=== PATIENT | male | born 1955 | race Caucasian/White ===

== ENCOUNTER 2017-02-07 08:59 | Day surgery (SDC) | payer OTHER ==
[~2017-02-07 08:59] MED LIST: ACETAMINOPHEN 500 MG TABLET PO PRN; HYDROmorphone HCL 2 MG/ML VIAL IV PRN; MAG HYDROX/ALUMINUM HYD/SIMETH 30 ML UDC PO PRN; MAGNESIUM HYDROXIDE 30 ML UDC PO PRN; ONDANSETRON HCL/PF 2 MG/ML VIAL IV PRN; PROMETHAZINE HCL 25 MG in DEXTROSE 5 % IN WATER 50 ML IV PRN; ZOLPIDEM TARTRATE 5 MG TABLET PO PRN; diphenhydrAMINE HCL 50 MG/ML VIAL IV PRN; oxyCODONE HCL/ACETAMINOPHEN 1 TAB TABLET PO PRN
[2017-02-07] MEDS ORDERED: RINGER'S SOLUTION,LACTATED 1,000 ML IV PRN (09:02)
[2017-02-07] MEDS ORDERED: ceFAZolin SODIUM 1 GM VIAL IV PRN (09:02)
[2017-02-07] MEDS ORDERED: RINGER'S SOLUTION,LACTATED 1,000 ML IV ONE ×3 (09:30→11:01)
--- NOTE | 2017-02-07 12:41 | OR ---
Operative Report - Dictated Report Narrative: Date: 02/07/2017 Physician: Joseph Tafoya M.D. Property Appraiser: Po Lee PA-C Preoperative diagnosis: Left Shoulder full-thickness supraspinatus rotator cuff tear, cubital tunnel Postoperative diagnosis: Left Shoulder full-thickness supraspinatus rotator cuff tear, biceps tendinopathy, degenerative labral tear, cubital tunnel syndrome with ulnar nerve instability Procedure: Left shoulder arthroscopy with mini open rotator cuff repair, biceps tenodesis, labral debridement, left elbow cubital tunnel release with ulnar nerve submuscular transposition Anesthesia: General plus regional Complications: None Estimated blood loss: Minimal Specimens: Biceps tendon for disposal Tourniquet: 28 minutes at 250 mmHg Retained implants: [employer] 4.5 mm peek helicoil anchor 3, footprint anchor 1 Drains: None Indications: Mr. Harden Is a 61 year-old gentleman who has been followed in my clinic with complaints of shoulder pain consistent rotator cuff pathology as well as ulnar neuropathy. Physical exam and diagnostic imaging were consistent with his complaints and concern for rotator cuff tear and cubital tunnel syndrome. Conservative measures have failed including, but not limited to, passage of time , activity modification, medications, physical therapy/home exercise program, or injections. The risks, benefits, and alternatives were discussed in clinic. The risks being , bleeding, infection, blood clots, nerve, tendon, ligament, blood vessel injury, persistent pain, arthrosis, stiffness, need for prolonged therapy, need for additional procedures, and persistent symptoms. Consent was obtained in the clinic. Procedure: After marking the correct extremity in the preoperative holding area, a timeout was performed in the operating room. IV antibiotics consisting of Ancef were administered prior to the procedure. A general followed by regional anesthetic was induced by the nurse media monitor per my request. This was in the supine position, then the patient was transitioned to a beachchair position with all bony prominences well-padded, head in neutral, the nonoperative arm well supported, and the legs padded with SCDs in place. The operative shoulder was then prepped and draped in a standard sterile fashion. A sterile tourniquet was applied to the operative upper arm. The arm was exsanguinated and the tourniquet was inflated to 250 mmHg. Using loupe magnification, a longitudinal incision centered over the cubital tunnel was made approximately 6 centimeters in length. Blunt dissection was carried down to the subcutaneous tissues using bipolar cautery for hemostasis. Care was taken to protect the identified underlying cutaneous nerves. The ulnar nerve was identified as it passed through the medial intermuscular septum along the distal triceps. A release of the canal in this area as the ulnar nerve passed anterior to posterior was performed in order to decompress the nerve at this site. The nerve was dissected releasing the overlying soft tissues while maintaining the vascularity of the nerve down to the area of the medial epicondyles and Kang's ligament. The nerve was completely decompressed as it passed posterior to the medial condyle and was followed into the flexor carpi ulnaris. The deep fascia of the flexor carpi ulnaris muscle was released in order to decompress the nerve at this site. The first branch of the ulnar nerve was protected as well as any identified recurrent branches. The elbow was placed through range of motion and it was noted that the nerve was not stable and it was noted to be dislocating with range of motion both pre-and post -decompression. For this reason it was felt that a transposition was necessary. The nerve was mobilized medially and anteriorly ensuring that there was no pressure from the intermuscular septum or the flexor carpi ulnaris fascia. A submuscular transposition was then performed under the flexor muscles of the medial aspect of the elbow ensuring that there is no excessive pressure and that the elbow could be placed through range of motion without any compression of the ulnar nerve. The repair of the flexor muscle fascia was performed with 4-0 Ethibond and oversewn with 4-0 Vicryl. Once it was felt that we had completely released the compressive structures on the ulnar nerve, the wound was thoroughly irrigated and the tourniquet was deflated. Hemostasis was obtained using pressure and bipolar cautery. Once adequate hemostasis was in place local anesthetic was placed in the skin edges, and the subcutaneous tissue was closed with interrupted Vicryl. The skin was closed with 4-0 nylon and sterile dressings consisting of Xeroform, 4 x 4, soft roll, and a forearm Dustin wrap was applied. All sponge, needle, blade, and instrument counts were correct prior to closing the wounds. We then turned our attention to the shoulder. Preoperatively the shoulder had full passive range of motion, and no gross instability. After marking out the bony landmarks, saline was infused into the joint through a posterior lateral portal site. A apurva incision was made, and the blunt trocar and cannula was introduced into the shoulder joint. An accessory portal was placed in the rotator cuff interval using a spinal needle for guidance. Upon initial evaluation, the biceps tendon showed near full-thickness tendinopathy and tear as it passed into the joint. The middle glenohumeral ligament was unremarkable. Subscapularis tendon was unremarkable. The glenoid showed minimal degenerative change. The humeral head articular surface showed and we' ll degenerative change. The anterior labrum was frayed but intact. The superior labrum was frayed but intact. The pouch was unremarkable. The posterior labrum was intact. The supraspinatus tendon was torn from just behind the biceps over approximately 50% of the anterior to posterior length of the tendon. The infraspinatus tendon was intact. Utilizing anterior portal of the biceps was tagged with a 2-0 nylon and then transected as it inserted on the labrum. The remaining biceps stump was then debrided. The labrum was debrided down to stable margins as well as well as the torn portion of the rotator cuff at the tuberosity. Attention was then turned to the subacromial space. Subacromial bursectomy was performed utilizing the prior portals. The coracoacromial ligament was frayed but intact. The bursal side of the rotator cuff demonstrated a tear full -thickness was identified intra-articularly. The acromial arch was unremarkable. Based on the arthroscopic findings, as well as exam and radiographic findings, it was elected to proceed with a mini open rotator cuff repair. A longitudinal incision centered over the previously identified rotator cuff tear was made just off the edge of the acromion. This was approximately 5 centimeters in length. The deltoid fascia was split sharply in line with its fibers, and blunt dissection was carried through the deltoid muscle. Any remaining subacromial bursal tissue was debrided in order to expose the underlying rotator cuff tear. The rotator cuff tear appeared to be transverse orientation. The tuberosity was debrided of its soft tissues producing a bleeding bed for the tendon to be secured to. 2 4.5 mm PEEK helicoil anchor was placed just off the articular surface of the humeral head. A series of horizontal mattress sutures were placed at the prepared edge of the rotator cuff. This allowed for a tension-free return of the tendon to the greater tuberosity. The sutures were then passed longitudinally into 1 4.5 mm PEEK footprint anchor. This was performed and a suture bridge technique. This gave good overall compression to the rotator cuff at the insertion site. The shoulders place a range of motion and had no lift off of the repair site as well as no crepitance or signs of impingement. The biceps was then identified in the groove and secured using a 4.5 mm helicoil anchor as well. This was then oversewn with the remaining suture closing the bicipital groove and interval. Full passive range of motion was able to be obtained. Once it was felt that the rotator cuff was adequately repaired, the wounds were thoroughly irrigated. 0 Vicryl was utilized in order to repair the deltoid fascia. 3-0 Vicryl was placed in the subcutaneous tissue. The rotator cuff incision as well as the portal sites were closed with interrupted nylon. Dressings consisting of Xeroform, 4 x 4, ABD, soft roll, and tape were applied. All sponge, needle, blade, and instrument counts were correct prior to closing the wounds. The patient was awoken and transferred to the postanesthesia care unit in stable condition.
--- NOTE | 2017-02-07 12:50 | OR ---
Anesthesia Procedure Note - Anesthesia Procedure Note Narrative: Vital Signs - Last Taken Temp 36.2 C L 02/07/17 12:35 Pulse 61 02/07/17 12:40 Resp 16 02/07/17 12:40 BP 95/66 02/07/17 12:40 Pulse Ox 94 02/07/17 12:40 O2 Oxygen Delivery Method Room Air 02/07/17 12:46 ANESTHESIA PROCEDURE NOTE Date of procedure: 02/07/2017. Time of procedure: 1005. Performed by: Samuel Hurt CRNA Laundry Laborer: Jenny Jensen RN . Preprocedure diagnosis: left rotator cuff tear.. Post procedure diagnosis: Same. Procedure: Left interscalene nerve block. Indications: Postoperative analgesia.. Findings: Patient placed in semi-Fowlers position. Left side of neck was prepped with ChloraPrep. Left brachial plexus was identified using ultrasound. 22-gauge Stimuplex needle was used to inject a total of 30 mL of 0.5% Marcaine with epinephrine 1 200,000 in the interscalene groove. Images retained. EBL: Minimal. Fluids: N/A. Specimen: N/A. Post procedure condition: The patient tolerated the procedure well. No complications were noted. Thank you for this consultation Samuel Hurt CRNA
[2017-02-07 14:16] VITALS: BP 154/84
[2017-02-07] MEDS ORDERED: SENNOSIDES/DOCUSATE SODIUM 1 TAB TABLET PO SCH (21:00)
== END 2017-02-07 09:00 | disposition home or self-care (01) ==
LOC: AMB 08:59
PROVIDERS: ATTEND Orthopaedic Surgery
PROC: 01N40ZZ Release Ulnar Nerve, Open Approach (ICD-10-PCS; 2017-02-07)
PROC: 0LS40ZZ Reposition Left Upper Arm Tendon, Open Approach (ICD-10-PCS; 2017-02-07)
PROC: 3E0T3BZ Introduction of Anesthetic Agent into Peripheral Nerves and Plexi, Percutaneous Approach (ICD-10-PCS; 2017-02-07)
PROC: 0RBK4ZZ Excision of Left Shoulder Joint, Percutaneous Endoscopic Approach (ICD-10-PCS; principal; 2017-02-07 10:45)
PROC: 0LQ20ZZ Repair Left Shoulder Tendon, Open Approach (ICD-10-PCS; 2017-02-07 10:45)
DX: M75.102 Unspecified rotator cuff tear or rupture of left shoulder, not specified as traumatic (principal); S43.492A Other sprain of left shoulder joint, initial encounter; M75.22 Bicipital tendinitis, left shoulder; G56.22 Lesion of ulnar nerve, left upper limb; I10 Essential (primary) hypertension; Z87.891 Personal history of nicotine dependence; Z68.1 Body mass index [BMI] 19.9 or less, adult